=== PATIENT | female | born 1980 | race Caucasian/White ===

== ENCOUNTER 2021-08-30 12:13 | Emergency (ER) | payer OTHER ==
[~2021-08-30] VITALS: Ht 162.6 cm; Wt 59.0 kg
[2021-08-30 13:19] LABS: CLARITY,URINE CLEAR (CLEAR); COLOR,URINE YELLOW (YELLOW)
[2021-08-30 13:20] LABS: KETONES,URINE NEGATIVE (NEGATIVE); LEUKOCYTE ESTERASE ,URINE NEGATIVE (NEGATIVE); NITRITE,URINE NEGATIVE (NEGATIVE); PROTEIN,URINE DIPSTICK NEGATIVE (NEGATIVE); URINE UROBILINOGEN 0.2 mg/dL (0.2 - 1)
[2021-08-30 13:32] LABS: BACTERIA,URINE RARE /HPF; EPITHELIAL CELLS,URINE FEW /LPF; RBC,URINE 0-5 /HPF (0-5); WBC,URINE (MAN) 0-5 /HPF (0-5)
[2021-08-30 14:06] VITALS: BP 135/67
== END 2021-08-30 14:15 | disposition home or self-care (01) ==
LOC: ER 12:17
DX: N89.8 Other specified noninflammatory disorders of vagina (principal); M54.50 Low back pain, unspecified; F17.210 Nicotine dependence, cigarettes, uncomplicated
CPT/HCPCS: 81001; 81025; 99283